=== PATIENT | female | born 1970 ===

== ENCOUNTER 2021-02-21 08:11 | Outpatient (CLI) | payer BC ==
[2021-02-21 10:34] LABS: ALT (SGPT) 13 U/L (8-55); AST (SGOT) 19 U/L (5-34); Albumin 4.6 g/dL (3.5-5.0); Alkaline Phosphatase 46 U/L (40-110); Anion Gap 9 mmol/L (10-20); BUN (Urea Nitrogen) 13 mg/dL (9.8-20.1); Calc. Creatinine Clearance 0 mL/min (70-130); Calcium 10.2 mg/dL (7.8-10.44); Carbon Dioxide 29 mmol/L (22-29); Cardiac Risk 2.1 (Less than 4.5); Chloride 102 mmol/L (98-107); Cholesterol 179 mg/dl (< 200 Desired); Globulin 2.8 g/dL (2.4-3.5); Glucose 99 mg/dL (70-105); HDL Cholesterol 84 mg/dL (>60 Neg Risk); Iron 120 ug/dL (50-170); Iron Binding Capacity, Total 296 mcg/dL (265-497); LDL Cholesterol, Calculated 87 mg/dL; Potassium 4.1 mmol/L (3.5-5.1); Protein, Total 7.4 g/dL (6.0-8.3); Sodium 136 mmol/L (136-145); Triglycerides 41 mg/dL (Less than 150)
[2021-02-21 10:53] LABS: Vitamin D, 25 Hydroxy 70.9 ng/ml (> 30.0)
[2021-02-21 10:56] LABS: Eosinophils 1 % (0-10); Free T4 (Free Thyroxine) 1.17 ng/dL (0.70-1.48); Hemoglobin 13.9 g/dL (12.0-16.0); Lymphocytes 59 % (21-51); MDiff Complete? YES; Mean Corpuscular HGB CONC 31.7 g/dL (32.0-36.0); Mean Corpuscular Hemoglobin 29.2 pg (27.0-31.0); Mean Corpuscular Volume 91.9 fL (78.0-98.0); Mean Platelet Volume 8.7 fL (7.4-10.4); Monocytes 1 % (0-10); Neutrophil 39 % (42-75); Platelet Count 231 thou/uL (130-400); Platelet Morphology Comment Appears Adequate; RBC Distribution Width 11.8 % (11.5-14.5); RBC Morphology Normal; Red Blood Cell (RBC) Count 4.77 mill/uL (4.20-5.40); Thyroid Stimulating Hormone 3.6277 uIU/mL (0.35-4.94); White Blood Cell (WBC) Count 4.3 thou/uL (4.8-10.8)
== END 2021-02-21 08:12 | disposition home or self-care (01) ==
LOC: SCSRAD 08:11
PROVIDERS: ATTEND Family Medicine
DX: Z00.00 Encounter for general adult medical examination without abnormal findings (principal); E03.9 Hypothyroidism, unspecified; D50.9 Iron deficiency anemia, unspecified
CPT/HCPCS: 36415; 72052; 80053; 80061; 82306; 82607; 82746; 83540; 83550; 84207; 84425; 84439; 84443; 84446; 84481; 84597; 85025; 86141